=== PATIENT | male | born 1975 | race Hispanic/Latino ===

== ENCOUNTER 2019-10-09 | Emergency (ER) | payer SELFPAY ==
[2019-10-09 14:02] LABS: HEMATOCRIT 46.3 % (39.0-50.0); HEMOGLOBIN 15.8 g/dl (14.0-18.0); IMMATURE GRANULOCYTES 0.3 % (0.0-5.0); MEAN CELL VOLUME 90.8 fL CALC (80.0-100.0); MEAN CORPUSCULAR HGB CONC 34.1 g/L CALC (32.0-36.0); NEUT# 9.99 thou/uL (1.82-7.42); RED BLOOD COUNT 5.1 mill/uL (4.70-6.10); RED CELL DISTRI WIDTH 12.8 % (11.5-15.5)
[2019-10-09 14:29] LABS: ALBUMIN 4.4 g/dL (3.2-5.0); ALKALINE PHOSPHATASE 98 u/l (38-126); ANION GAP 13 (6-22 (CALC)); BILIRUBIN, TOTAL 0.6 mg/dL (0.0-1.4); BUN 9 mg/dL (9-20); BUN/CREATININE RATIO 15 (12-20 (CALC)); C-REACTIVE PROTEIN 6.3 mg/dL (0-0.9); CARBON DIOXIDE 26 mmol/l (22-30); CHLORIDE 102 mmol/l (95-108); CREATININE 0.6 mg/dL (0.7-1.3); GFR > 60 ML/MIN (>=60 (CALC)); GFR FOR AFR.AMER. > 60 ML/MIN (>=60 (CALC)); POTASSIUM 4.1 mmol/l (3.5-5.1); SGOT/AST 28 u/l (17-59); SODIUM 137 mmol/l (137-146); TOTAL PROTEIN 7.7 g/dL (6.3-8.2)
[2019-10-09] MEDS ORDERED: KEFLEX500 M1 PO (14:48)
== END 2019-10-09 15:46 | disposition home or self-care (01) | DRG 603 ==
DX: L03.113 Cellulitis of right upper limb (principal)

== ENCOUNTER 2020-12-30 09:17 | Emergency (ER) | payer SELFPAY ==
[~2020-12-30] VITALS: Ht 162.6 cm; Wt 80.0 kg
[~2020-12-30 09:17] MED LIST: KEFLEX500 M1 PO
[2020-12-30] MEDS ORDERED: NAPROXEN500 MG PO (10:17)
[2020-12-30 10:30] VITALS: BP 154/91
== END 2020-12-30 10:30 | disposition home or self-care (01) | DRG 554 ==
LOC: ED 09:17
DX: M89.49 Other hypertrophic osteoarthropathy, multiple sites (principal)